=== PATIENT | male | born 1960 | race Caucasian/White ===

== ENCOUNTER 2018-01-04 18:46 | Inpatient (IN) | payer BC, OTHER ==
[~2018-01-04] VITALS: Ht 170.2 cm; Wt 79.4 kg
[2018-01-04] MEDS ORDERED: diphenhydrAMINE 50 MG CAPSULE PO PRN (19:45)
[2018-01-04] MEDS ORDERED: MAG HYDROX/AL HYDROX/SIMETH 30 ML LIQUID UDC PO PRN (19:45)
[2018-01-04] MEDS ORDERED: CLONIDINE HCL 0.1 MG TABLET PO PRN (19:45)
[2018-01-04] MEDS ORDERED: LORAZEPAM 1 MG TABLET PO PRN (19:45)
[2018-01-04] MEDS ORDERED: ACETAMINOPHEN 325 MG TABLET PO PRN (19:45)
[2018-01-04] MEDS ORDERED: LORAZEPAM 2 MG/1 ML VIAL IM PRN (19:45)
[2018-01-04] MEDS ORDERED: ONDANSETRON 4 MG/2 ML VIAL IM PRN (19:45)
[2018-01-04] MEDS ORDERED: LOPERAMIDE HCL 2 MG CAPSULE PO PRN ×2 (19:45)
[2018-01-04 20:00] VITALS: BP 115/73
[2018-01-04 20:11] LABS: *AMPHETAMINE, URINE NEGATIVE (NEGATIVE); *BARBITURATE, URINE NEGATIVE (NEGATIVE); *CANNABINOID, URINE NEGATIVE (NEGATIVE); *COCCAINE, URINE POSITIVE (NEGATIVE); *OPIATE, URINE NEGATIVE (NEGATIVE); *PHENCYCLIDINE SCREEN,URINE NEGATIVE (NEGATIVE)
[2018-01-04 20:32] LABS: ETHANOL < 3 MG/DL (0-0)
[2018-01-04] MEDS ORDERED: LORAZEPAM 1 MG TABLET PO SCH (21:00)
[2018-01-04 21:08] LABS: BASOPHILS % (AUTO) 0.7 % (0.0-2.0); EOSINOPHILS # (AUTO) 0.4 K/uL (0.0-0.7); EOSINOPHILS % (AUTO) 6.1 % (0.0-7.0); HEMATOCRIT 41.7 % (36.7-47.1); HEMOGLOBIN 13.8 g/dL (12.5-16.3); LYMPHOCYTES # (AUTO) 2.1 K/uL (20.0-40.0); LYMPHOCYTES % (AUTO) 30.7 % (20.5-51.5); MEAN CORPUSCULAR HEMOGLOBIN 29.8 uug (23.8-33.4); MEAN CORPUSCULAR HGB CONC 33 g/dL (32.5-36.3); MEAN CORPUSCULAR VOLUME 90.4 fL (73.0-96.2); MONOCYTES # (AUTO) 0.5 K/uL (2.0-10.0); NEUTROPHILS # (AUTO) 3.8 K/uL (1.8-8.9); NEUTROPHILS % (AUTO) 55.5 % (38.5-71.5); PLATELET COUNT (AUTO) 287 K/uL (152-348); RED BLOOD CELL COUNT(AUTO) 4.61 MIL/uL (4.06-5.63); WHITE BLOOD COUNT (AUTO) 6.8 K/uL (3.6-10.2)
[2018-01-04 21:12] LABS: ALANINE AMINOTRANSFERASE 48 U/L (16-63); ALKALINE PHOSPHATASE 91 U/L (50-136); ASPARTATE AMINOTRANSFERASE 56 U/L (15-37); BILIRUBIN,TOTAL 0.6 mg/dL (0.2-1.0); CARBON DIOXIDE 31 mmol/L (21-32); CHLORIDE 103 mmol/L (98-107); GLUCOSE 107 mg/dL (74-106); MAGNESIUM 1.9 mg/dL (1.8-2.4); POTASSIUM 4.5 mmol/L (3.5-5.1); TOTAL PROTEIN, SERUM 6.9 g/dL (6.4-8.2); UREA NITROGEN, BLOOD 21 mg/dL (7-18)
[2018-01-04] MEDS: IBUPROFEN 600 MG TABLET PO PRN (21:51)
[2018-01-04] MEDS: BUPRENORPHINE HCL 2 MG TAB.SUBL SL PRN (22:03)
[2018-01-04] MEDS: MAGNESIUM HYDROXIDE 30 ML LIQUID UDC PO PRN (22:13)
[2018-01-04] MEDS ORDERED: risperiDONE 2 MG TABLET PO ONE (22:45)
[2018-01-04] MEDS ORDERED: SERTRALINE HCL 100 MG TABLET PO ONE (22:45)
[2018-01-05] VITALS: BP 93/50
[2018-01-05] MEDS: LORAZEPAM 1 MG TABLET PO PRN ×2 (00:41→02:47)
[2018-01-05] MEDS: BUPRENORPHINE HCL 2 MG TAB.SUBL SL PRN (02:48)
[2018-01-05 04:00] VITALS: BP 102/64
[2018-01-05] MEDS ORDERED: TETR-62 OP (04:43)
[2018-01-05] MEDS ORDERED: SERT100T PO (04:43)
[2018-01-05] MEDS ORDERED: PERM60CR4 TP (04:43)
[2018-01-05] MEDS ORDERED: ASPI-973 PO (04:43)
[2018-01-05] MEDS ORDERED: RISP2TAB23 PO (04:43)
[2018-01-05] MEDS ORDERED: DM/P1POW2 PO (04:43)
[2018-01-05] MEDS ORDERED: [UNRECOGNIZED DRUG - OTHER] PO (04:43)
[2018-01-05] MEDS: METHOCARBAMOL 750 MG TABLET PO PRN (05:41)
[2018-01-05 08:00] VITALS: BP 108/69
[2018-01-05] MEDS ORDERED: TUBERCULIN,PURIF.PROT.DERIV. 5 TU/0.1 ML TEST ID ONE (09:00)
[2018-01-05] MEDS: BUPRENORPHINE HCL 2 MG TAB.SUBL SL SCH ×3 (11:35→21:04)
[2018-01-05 12:00] VITALS: BP 114/72
[2018-01-05] MEDS: MIRALAX 17 GM POWD.PACK PO PRN (13:13)
[2018-01-05] MEDS: LORAZEPAM 1 MG TABLET PO SCH ×2 (14:45→21:05)
[2018-01-05 16:00] VITALS: BP 111/61
[2018-01-05] MEDS ORDERED: risperiDONE 2 MG TABLET PO SCH (18:00)
[2018-01-05 20:00] VITALS: BP 106/66
[2018-01-05] MEDS: risperiDONE 2 MG TABLET PO SCH (21:04)
[2018-01-05] MEDS: SERTRALINE HCL 100 MG TABLET PO SCH (21:05)
[2018-01-05] MEDS: GABAPENTIN 300 MG CAPSULE PO SCH (21:05)
[2018-01-06 08:00] VITALS: BP 104/64
[2018-01-06] MEDS: GABAPENTIN 300 MG CAPSULE PO SCH ×3 (08:48→20:44)
[2018-01-06] MEDS ORDERED: BUPRENORPHINE HCL 2 MG TAB.SUBL SL SCH (09:00)
[2018-01-06] MEDS ORDERED: PNEUMOCOCCAL 23-VAL P-SAC VAC 0.5 ML VIAL IM ONE (09:00)
[2018-01-06] MEDS ORDERED: LORAZEPAM 1 MG TABLET PO SCH ×3 (09:00→21:00)
[2018-01-06] MEDS ORDERED: INFLUENZA VACCINE 2017-2018 0.5 ML DISP.SYRIN IM ONE (09:00)
[2018-01-06] MEDS ORDERED: SERTRALINE HCL 100 MG TABLET PO SCH (09:00)
[2018-01-06 12:00] VITALS: BP 103/70
[2018-01-06 13:11] LABS: HEPATITIS B SURFACE AG Negative (Negative)
[2018-01-06] MEDS: BUPRENORPHINE HCL 2 MG TAB.SUBL SL SCH ×2 (14:04→20:44)
[2018-01-06 16:00] VITALS: BP 115/74
[2018-01-06] MEDS: MIRALAX 17 GM POWD.PACK PO PRN (17:15)
[2018-01-06 20:00] VITALS: BP 104/74
[2018-01-06] MEDS: ONDANSETRON ODT 4 MG TAB.RAPDIS SL PRN (20:42)
[2018-01-06] MEDS: METHOCARBAMOL 750 MG TABLET PO PRN (20:42)
[2018-01-06] MEDS: IBUPROFEN 600 MG TABLET PO PRN (20:44)
[2018-01-06] MEDS: risperiDONE 2 MG TABLET PO SCH (20:44)
[2018-01-06] MEDS: SERTRALINE HCL 100 MG TABLET PO SCH (20:44)
[2018-01-07 08:00] VITALS: BP 99/60
[2018-01-07] MEDS: BUPRENORPHINE HCL 2 MG TAB.SUBL SL SCH ×3 (08:25→21:24)
[2018-01-07] MEDS: LORAZEPAM 1 MG TABLET PO SCH ×2 (08:25→21:24)
[2018-01-07] MEDS: GABAPENTIN 300 MG CAPSULE PO SCH ×3 (08:25→21:24)
[2018-01-07] MEDS ORDERED: CLON0.1T14 PO (11:58)
[2018-01-07] MEDS ORDERED: IBUP-1955 PO (11:58)
[2018-01-07] MEDS ORDERED: DIPH50CA37 PO (11:58)
[2018-01-07] MEDS ORDERED: METH-406 PO (11:58)
[2018-01-07] MEDS ORDERED: GABA-534 PO (11:58)
[2018-01-07 12:32] VITALS: BP 97/61
[2018-01-07 16:00] VITALS: BP 101/69
[2018-01-07 17:46] VITALS: BP 106/72
[2018-01-07] MEDS ORDERED: LORAZEPAM 1 MG TABLET PO ONE (18:00)
[2018-01-07] MEDS: METHOCARBAMOL 750 MG TABLET PO PRN (18:10)
[2018-01-07] MEDS: IBUPROFEN 600 MG TABLET PO PRN (18:10)
[2018-01-07 20:00] VITALS: BP 109/72
[2018-01-07] MEDS: risperiDONE 2 MG TABLET PO SCH (21:24)
[2018-01-07] MEDS: SERTRALINE HCL 100 MG TABLET PO SCH (21:24)
[2018-01-07] MEDS: MAGNESIUM HYDROXIDE 30 ML LIQUID UDC PO PRN (21:35)
[2018-01-08] VITALS: BP 104/69
[2018-01-08 08:00] VITALS: BP 100/69
[2018-01-08] MEDS: GABAPENTIN 300 MG CAPSULE PO SCH ×3 (08:23→20:07)
[2018-01-08] MEDS: HYDROXYZINE PAMOATE 25 MG CAPSULE PO PRN ×2 (08:28→21:36)
[2018-01-08] MEDS: METHOCARBAMOL 750 MG TABLET PO PRN ×2 (08:29→22:45)
[2018-01-08] MEDS: MIRALAX 17 GM POWD.PACK PO PRN (08:30)
[2018-01-08] MEDS ORDERED: LORAZEPAM 1 MG TABLET PO SCH (09:00)
[2018-01-08] MEDS ORDERED: BUPRENORPHINE HCL 2 MG TAB.SUBL SL SCH (09:00)
[2018-01-08] MEDS ORDERED: KETOROLAC TROMETHAMINE 30 MG INJ IM PRN (11:00)
[2018-01-08 12:00] VITALS: BP 116/64
[2018-01-08] MEDS: LIDOCAINE 5% PATCH TD SCH (12:18)
[2018-01-08 16:00] VITALS: BP 113/73
[2018-01-08 20:00] VITALS: BP 111/71
[2018-01-08] MEDS: SERTRALINE HCL 100 MG TABLET PO SCH (20:06)
[2018-01-08] MEDS: risperiDONE 2 MG TABLET PO SCH (20:07)
[2018-01-08] MEDS: ONDANSETRON ODT 4 MG TAB.RAPDIS SL PRN (22:45)
[2018-01-09] MEDS: LIDOCAINE 5% PATCH TD SCH (08:07)
[2018-01-09] MEDS: GABAPENTIN 300 MG CAPSULE PO SCH (08:07)
[2018-01-09 08:16] VITALS: BP 111/69
== END 2018-01-09 09:33 | disposition other institution (70) | DRG 895 ==
LOC: SRC 18:46
PROVIDERS: ADMIT Internal Medicine; ATTEND Internal Medicine
PROC: HZ2ZZZZ Detoxification Services for Substance Abuse Treatment (ICD-10-PCS; principal; 2018-01-04)
PROC: HZ31ZZZ Individual Counseling for Substance Abuse Treatment, Behavioral (ICD-10-PCS; 2018-01-06)
DX: F11.23 Opioid dependence with withdrawal (principal); E87.3 Alkalosis; F33.3 Major depressive disorder, recurrent, severe with psychotic symptoms; F14.20 Cocaine dependence, uncomplicated; Z86.74 Personal history of sudden cardiac arrest; F13.230 Sedative, hypnotic or anxiolytic dependence with withdrawal, uncomplicated; F17.210 Nicotine dependence, cigarettes, uncomplicated; Z91.5 Personal history of self-harm; Z91.89 Other specified personal risk factors, not elsewhere classified; Z81.1 Family history of alcohol abuse and dependence; Z79.899 Other long term (current) drug therapy; E86.0 Dehydration; F41.9 Anxiety disorder, unspecified; R73.9 Hyperglycemia, unspecified
CPT/HCPCS: 36415; 80307; 80346; 80353; 83735; 85025; 86592; 86705; 86803; 87340; 87806; 90686; 90732; A4663; G0480; Q0162; Q0163